=== PATIENT | female | born 1970 | race Hispanic/Latino ===

== ENCOUNTER 2023-08-11 07:19 | Emergency (ER) | payer SELFPAY ==
[2023-08-11] MEDS ORDERED: Acetaminophen 500 MG TAB ONE (08:30)
== END 2023-08-11 08:38 | disposition home or self-care (01) ==
LOC: ERS 07:19
DX: S62.622A Displaced fracture of middle phalanx of right middle finger, initial encounter for closed fracture (principal); F17.210 Nicotine dependence, cigarettes, uncomplicated; V00.848A Other accident with standing micro-mobility pedestrian conveyance, initial encounter